=== PATIENT | female | born 1955 | race Caucasian/White ===

== ENCOUNTER 2018-03-31 07:04 | Day surgery (SDC) | payer BC ==
[2018-03-31] MEDS ORDERED: FENTANYL PF 100MCG/2ML VIAL IV ONE (07:05)
[2018-03-31] MEDS ORDERED: KETAMINE HCL 100MG/1ML VIAL INJ ONE (07:05)
[2018-03-31] MEDS ORDERED: LIDOCAINE 1% W/EPI 1:200,000 MPF 30ML SQ ONE (07:05)
[2018-03-31] MEDS ORDERED: MIDAZOLAM HCL 2MG/2ML VIAL IV ONE (07:05)
[2018-03-31] MEDS ORDERED: BUPIVACAINE 0.5% W/EPI MPF 30 ML VIAL IVP ONE (07:05)
[2018-03-31] MEDS ORDERED: PROPOFOL 10 MG/ML VIAL IV ONE (07:05)
[2018-03-31] MEDS ORDERED: DEXAMETHASONE PRESERVATIVE FREE 10MG/ML VIAL IV ONE (07:05)
[2018-03-31] MEDS ORDERED: DEXAMETHASONE 4 MG/ML 1ML VIAL IVP ONE (07:05)
[2018-03-31] MEDS ORDERED: HYDROCODONE/APAP 7.5/325MG TABLET PO ONE (07:05)
[2018-03-31] MEDS ORDERED: LIDOCAINE 2% MDV (20MG/ML) 20ML VIAL IV ONE (07:05)
[2018-03-31] MEDS ORDERED: KETOROLAC 30 MG/ML VIAL IVP ONE ×2 (07:05)
--- NOTE | 2018-04-02 07:17 | Operative Note ---
DATE OF SURGERY: 03/31/2018. PREOPERATIVE DIAGNOSIS: CERVICAL SPONDYLOSIS WITHOUT MYELOPATHY, ICD-10 CODE M47.812. POSTOPERATIVE DIAGNOSIS: CERVICAL SPONDYLOSIS WITHOUT MYELOPATHY, ICD-10 CODE M47.812. PROCEDURE: Radiofrequency rhizotomy of the bilateral cervical facets 4-5, 5-6, and 6-7. INDICATIONS: This patient presents with primary neck pain. Examination shows tenderness in the cervical spine. Range of motion does cause pain to the neck with extension. Diagnostic studies show significant endplate spurring and osteophytic formation diffusely throughout the cervical spine. A 4-5 through 6- 7 facet block provided 75 percent relief. Due to the failure of therapy and the success of the facet series, she is here for rhizotomy for more long-term relief. DESCRIPTION OF PROCEDURE: Intravenous lines, vital sign monitoring, and intravenous sedation. Prepped and draped with sterile technique. Under imaging , the cervical facets at 4-5, 5-6, and 6-7 were marked bilaterally. The skin was infiltrated infiltrated. A 20-gauge rhizotomy cannula was positioned. Stimulation trial was conducted and rhizotomy burn was performed. Local with anti-inflammatory into the sites. Topical antibiotic and sterile dressing applied. Will monitor and evaluate. cc: Sahil Zhang D.O. JOB NUMBER: [id number] MTDD
== END 2018-03-31 09:45 | disposition home or self-care (01) ==
LOC: SUR 07:04
PROVIDERS: ATTEND Pain Medicine Interventional Pain Medicine
DX: M47.812 Spondylosis without myelopathy or radiculopathy, cervical region (principal); M06.9 Rheumatoid arthritis, unspecified
CPT/HCPCS: J1885; J3490